=== PATIENT | female | born 1950 | race Caucasian/White ===

== ENCOUNTER 2020-06-19 11:12 | Outpatient (CLI) | payer MEDICARE, SELFPAY ==
--- NOTE | 2020-06-19 11:34 | XRR_ITS ---
PROCEDURE INFORMATION: Exam: XR Left Knee Exam date and time: 06/19/2020 11:35 AM Age: 70 years old Clinical indication: Pain; Knee; Left; Additional info: Left knee pain x 3 weeks/? Morales's cyst TECHNIQUE: Imaging protocol: XR Left knee. Views: 3 views. COMPARISON: No relevant prior studies available. FINDINGS: Bones/joints: Mild degenerative changes within the medial compartment reflected as mild joint space narrowing. Mild patellofemoral degenerative changes Soft tissues: Normal. XR/XR knee LT 3V* [id number] IMPRESSION: Mild degenerative changes most pronounced medially
== END 2020-06-19 11:13 | disposition home or self-care (01) ==
LOC: RAD 11:25
PROVIDERS: PCP Nurse Practitioner Family; Visit Provider Nurse Practitioner Family
DX: M25.562 Pain in left knee (principal)
CPT/HCPCS: 73562

== ENCOUNTER 2020-08-05 15:16 | Outpatient (RCR) | payer MEDICARE, SELFPAY | END 2020-08-19 23:59 | disposition home or self-care (01) | LOC: SPT 15:16 | PROVIDERS: PCP Nurse Practitioner Family; Referring Provider Nurse Practitioner Family; Visit Provider Nurse Practitioner Family | DX: M25.562 Pain in left knee (principal) | CPT/HCPCS: 97110; 97161 ==

== ENCOUNTER 2020-08-20 15:33 | Outpatient (CLI) | payer MEDICARE, SELFPAY ==
--- NOTE | 2020-08-20 15:58 | MR_ITS ---
WS: [id number] MRI LEFT KNEE NONCONTRAST TECHNIQUE: Axial PD, coronal PD fat sat, coronal PD, sagittal PD, and sagittal PD fat-sat images obta ined. CLINICAL INFORMATION: KNEE PAIN, LEFT COMPARISON: None. FINDINGS: Distal quadriceps and patella tendons are intact. Hypertrophic patella. Small suprapatellar effusion. Prepatellar soft tissue edema. Normal ACL. Normal PCL. Normal lateral meniscus. Complex tear involvi ng the posterior horn medial meniscus extending to the articular surface. This extends to the menisca l root with blunting of the posterior horn medial meniscus. Moderate joint space narrowing medial patricia nt compartment. Subchondral edema involving the medial tibial plateau. Fluid superficial and deep to the medial collateral ligament consistent with grade 1-2 injury. Fluid deep to the semimembranosus te ndon. Small osteochondral defects involving the medial tibial plateau. Moderate chondromalacia patella. No rmal medial and lateral patellar retinaculum. MR/MR knee LT wo con* [id number] IMPRESSION: 1. Moderate suprapatellar effusion. 2. Anterior and posterior cruciate ligaments are intact. 3. Complex tear involving the posterior horn medial meniscus extending to the articular surface. This extends to the meniscal root. Soft tissue edema involvi ng the medial joint line. 4. Fluid superficial and deep to the medial collateral ligament consistent wit h grade 1-2 injury which appears intact. 5. Moderate joint space narrowing medial joint compartment with subchondral ed kavon and small osteochondral defects involving the medial tibial plateau. No destiny ma in the medial femoral condyle. 6. Moderate chondromalacia patella.
== END 2020-08-20 15:34 | disposition home or self-care (01) ==
LOC: RADSHAW 15:36
PROVIDERS: PCP Nurse Practitioner Family; Visit Provider Nurse Practitioner Family
DX: M25.462 Effusion, left knee (principal); M22.42 Chondromalacia patellae, left knee; S83.242A Other tear of medial meniscus, current injury, left knee, initial encounter; X58.XXXA Exposure to other specified factors, initial encounter
CPT/HCPCS: 73721

== ENCOUNTER → 2020-08-28 13:18 | Outpatient (BNVA) | payer MEDICARE, SELFPAY | PROVIDERS: PCP Nurse Practitioner Family; Visit Provider Orthopaedic Surgery | DX: M25.562 Pain in left knee (principal) | CPT/HCPCS: 73560; 73565 ==

== ENCOUNTER 2021-04-24 09:21 | Outpatient (CLI) | payer MEDICARE, SELFPAY ==
--- NOTE | 2021-04-24 09:25 | MM_ITS ---
WS: [id number] BILATERAL DIGITAL SCREENING MAMMOGRAPHY WITH CAD CLINICAL INFORMATION: SCREENING HISTORY: Screening mammogram. No current complaints. COMPARISON: TECHNIQUE: Bilateral CC and MLO views. FINDINGS: Scattered fibroglandular densities bilaterally. Stable intramammary lymph nodes upper outer right daria ast. No suspicious focal mass, asymmetry, calcifications, or architectural distortion. No evidence of malignancy. MM/[place] [id number] IMPRESSION: BI-RADS: 2-Benign FOLLOW UP: 1 Year Follow-up Recommend return to annual screening mammography.
== END 2021-04-24 09:22 | disposition home or self-care (01) ==
LOC: RADSHAW 09:24
PROVIDERS: PCP Nurse Practitioner Family; Visit Provider Nurse Practitioner Family
DX: Z12.31 Encounter for screening mammogram for malignant neoplasm of breast (principal)
CPT/HCPCS: 77067

== ENCOUNTER 2021-12-17 10:02 | Emergency (ER) | payer MEDICARE, SELFPAY ==
[2021-12-17 10:06] VITALS: BP 179/78; PULSE 95; RESP 18; TEMP 36.9; O2SAT 99; BMI 33.2
--- NOTE | 2021-12-17 10:16 | XR_ITS ---
WS: [id number] PORTABLE CHEST HISTORY: Chest pain. COMPARISON: None available. Lungs are clear and well expanded. No pleural effusion or pneumothorax. Cardiac size: Normal. Mediastinum/Aorta: Normal mediastinum. No osseous abnormality seen. XR/XR chest 1V portable [id number] IMPRESSION: Unremarkable portable chest.
--- NOTE | 2021-12-17 10:16 | ECG_ITS ---
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 Measurements Intervals [place] Rate: 85 P: 63 NE: 156 QRS: 11 QRSD: 86 T: 49 QT: 370 QTc: 441 Interpretive Statements SINUS RHYTHM LOW QRS VOLTAGE IN PRECORDIAL LEADS [QRS DEFLECTION < 1.0 mV IN CHEST LEADS] No previous ECG available for comparison Electronically Signed On 12-17-2021 17:06:05 CDT by Daniel Cabrera M.D. [email or web address] - [id number]
[2021-12-17 10:21] VITALS: BP 177/80; PULSE 79; RESP 16; TEMP 36.9; O2SAT 96
--- NOTE | 2021-12-17 10:31 | ED_ITS ---
Documented by User: ANNIE Chaudhary 12/18/21 12:19 HPI - Chest Pain General: Chief Complaint: Chest Pain Stated Complaint: Chest Pain History of Present Illness: Patient is a 71-year-old female comes to the ED with chest pain. Patient says it started 3 days ago while she was at rest. Pain started in the left lower side of chest and over the past 3 days it has progressed and become a burning pain that is moved up into the center of her chest. She also endorses having some left arm soreness as well. She states she is never had chest pain like this before. Pain does not worsen after she eats or if she is laying flat. Pain worsens if she takes a deep breath. She currently rates the pain a 3 out of 10. Patient did say that she ate some spicy cinnamon homemade apple butter right before the symptoms started. She says she does not usually eat things are that spicy. patient also states that she lost her brother a week ago. Associated symptoms: Deny abdominal pain, dyspnea, fever(s), nausea, palpitations or vomiting Review of Systems Const: Denies: fever(s), chills or fatigue Eyes: Denies: change in vision or eye discomfort ENMT: Denies: throat pain, odynophagia, nasal discharge or nasal congestion Card: Reports: chest pain; Denies: palpitations, edema, swelling of feet/ankles, dyspnea on exertion or orthopnea Resp: Denies: dyspnea, productive cough or non-productive cough GI: Denies: abdominal pain, nausea, vomiting, diarrhea, constipation or hematochezia : Denies: flank pain, dysuria or hematuria Musc: Denies: neck pain, back pain or extremity swelling Skin/Breast: Denies: rash or new lesions Neuro: Denies: headache(s), numbness in extremities or weakness in extremities PFS ED PFSH: Medical History (Updated 12/18/21 @ 12:14 by ANNIE Chaudhary) No pertinent family history No pertinent past medical history Physical Exam Const: COMMON NORMALS: no acute distress, patient oriented x3, healthy appearing and alert GENERAL APPEARANCE: cooperative and comfortable HENMT: COMMON NORMALS: normocephalic HEAD & SCALP: normocephalic MOUTH: Normal oral and palatal mucosa present THROAT: posterior oropharynx normal and uvula midline Neck/C-Spine: COMMON NORMALS: supple GENERAL: Yes normal visual inspection Resp: COMMON NORMALS: normal respiratory effort, No retractions, No use of accessory muscles and clear to auscultation bilaterally AUSCULTATION: clear to auscultation bilaterally Cardio: COMMON NORMALS: regular rate, regular rhythm, S1 normal heart sound present, S2 normal heart sound present, No gallops present (Cardio), No clicks present (Cardio), No murmurs present (Cardio) and Peripheral pulses 2+ throughout RATE: regular rate RHYTHM: regular rhythm HEART SOUNDS: S1 normal heart sound present and S2 normal heart sound present PERIPHERAL PULSES: Peripheral pulses 2+ throughout GI: COMMON NORMALS: Normal to inspection, nondistended, normoactive bowel sounds present, Soft to palpation, non-tender and no masses PALPATION: Yes Soft to palpation : COMMON NORMALS: Yes no CVA tenderness BLADDER/KIDNEY EXAM: Yes no CVA tenderness Back/Pelvis: COMMON NORMALS: no CVA tenderness Extremity: COMMON NORMALS: normal to inspection and no pedal edema Neuro: COMMON NORMALS: patient oriented x3 and moves all extremities SENSORIUM/ORIENTATION: Yes alert Skin: GENERAL SKIN EXAM: dry skin Course Vital Signs: Vital signs: Vital Signs Temperature 98.5 F 12/17/21 10:21 Pulse Rate 76 12/17/21 12:42 Respiratory Rate 16 12/17/21 12:42 Blood Pressure 121/58 12/17/21 12:42 Pulse Oximetry 95 12/17/21 12:42 MDM - Chest Pain Medical Decision Making Patient is a 71-year-old female who comes to the ED with chest pain. Symptoms started 3 days ago. Patient says she is having a burning pain that goes in the middle of her chest. She endorses eating some spicy cinnamon apple butter that she may need and symptoms started after she started eating. Vitals are stable. Patient appears in no acute distress or pain. Rest of exam is benign. CBC and CMP were unremarkable. Baseline troponin negative. D-dimer negative. Chest x- ray showed no acute findings. baseline and 2-hour EKG showed normal sinus rhythm with some occasional supraventricular premature complexes but no ST segment elevation or depression seen. Patient diagnosed with noncardiac chest pain and was discharged home. She was told to follow-up with her PCP in the next 5 to 7 days reevaluation. Return to ED precautions given. Patient understood and agreed with plan. Lab Data I reviewed the patient's lab results. : 12/17/21 10:45 12/17/21 10:45 Radiology Impressions Chest X-Ray 12/17/21 10:16 IMPRESSION: Unremarkable portable chest. Laboratory Results WBC 9.2 10^3/uL (4.0-10.0) 12/17/21 10:45 RBC 4.98 10^6/uL (4.1-5.3) 12/17/21 10:45 Hgb 14.5 g/dL (11.5-15.3) 12/17/21 10:45 Hct 44.2 % (37.0-47.0) 12/17/21 10:45 MCV 88.8 fl (81-99) 12/17/21 10:45 MCH 29.1 pg (28.0-34.0) 12/17/21 10:45 MCHC 32.8 g/dL (30.0-36.0) 12/17/21 10:45 RDW 12.9 % (12.1-15.1) 12/17/21 10:45 Plt Count 327 10^3/cmm (130-400) 12/17/21 10:45 MPV 9.7 fL (7.4-10.4) 12/17/21 10:45 Neut % (Auto) 48.1 % 12/17/21 10:45 Lymph % (Auto) 32.7 % 12/17/21 10:45 Perkins % (Auto) 7.9 % 12/17/21 10:45 Eos % (Auto) 10.1 % 12/17/21 10:45 Baso % (Auto) 0.8 % 12/17/21 10:45 Neut # (Auto) 4.41 10^3/uL (1.8-7.7) 12/17/21 10:45 Lymph # (Auto) 3.0 10^3/uL (0.8-4.8) 12/17/21 10:45 Perkins # (Auto) 0.7 10^3/uL (0.2-0.9) 12/17/21 10:45 Eos # (Auto) 0.9 10^3/uL (0.0-0.8) H 12/17/21 10:45 Baso # (Auto) 0.1 10^3/uL (0.0-0.1) 12/17/21 10:45 Nucleated RBC % (auto) 0 % 12/17/21 10:45 Nucleated RBCs # 0.0 /100WBC 12/17/21 10:45 D-Dimer <= 0.27 ug/mIFEU (0-0.59) 12/17/21 10:45 Sodium 136 mmol/L (136-145) 12/17/21 10:45 Potassium 4.5 mmol/L (3.5-5.1) 12/17/21 10:45 Chloride 103 mmol/L (98-107) 12/17/21 10:45 Carbon Dioxide 23 mmol/L (22-29) 12/17/21 10:45 Anion Gap 14.5 (5-19) 12/17/21 10:45 BUN 14 mg/dL (8-23) 12/17/21 10:45 Creatinine 0.8 mg/dL (0.5-0.9) 12/17/21 10:45 GFR Calculation 71.1 mL/min (90-130) L 12/17/21 10:45 Glucose 97 mg/dL (65-115) 12/17/21 10:45 Calculated Osmolality 282 mOsm/kg (285-295) L 12/17/21 10:45 Calcium 9.4 mg/dL (8.5-10.5) 12/17/21 10:45 Total Bilirubin 0.2 mg/dL (0.15-1.2) 12/17/21 10:45 AST 16 U/L (0-32) 12/17/21 10:45 ALT 15 U/L (0-33) 12/17/21 10:45 Alkaline Phosphatase 90 IU/L (35-105) 12/17/21 10:45 Troponin T Baseline 9 ng/L (0-10) 12/17/21 10:45 NT-Pro-B Natriuret Pep 103 pg/mL (0-125) 12/17/21 10:45 Total Protein 6.8 g/dL (6.6-8.7) 12/17/21 10:45 Albumin 4.1 g/dL (3.5-5.2) 12/17/21 10:45 Globulin 2.7 g/dL (1.3-4.6) 12/17/21 10:45 Discharge Plan Discharge Patient Disposition: Home Clinical Impression: Chest pain, non-cardiac Condition: Stable Prescriptions: No Action levothyroxine 50 mcg tablet 50 mcg PO DAILY 0RF Discharge Orders: Discharge ED (Routine); Ordered 12/17/21 Ordered By: Andrew Marks Referrals: Keshia Leung LOOM INSPECTOR [Primary Care Provider] - Discharge Diet: Regular Discharge Activity: Increase activity as tolerated Patient Instructions: Noncardiac Chest Pain (ED) Activity Restrictions/Additional Instructions: Follow-up with medical provider as directed in the next 5 to 7 days reevaluation. Continue taking all home medications as previously prescribed. If you have any reoccurring instances of acid reflux she can take [id number] Pepto-Bismol or Mylanta to see if it helps with her symptoms. If you continue getting reoccurring acid reflux type symptoms after you eat talk with your primary care doctor about other medication options. Return to the ER or your medical provider if condition worsens. Please read and understand discharge instructions. Thank you for choosing [facility] for your healthcare needs today. Please realize this is an emergency room and that we are providing you with a medical screening exam and this may not be complete and all inclusive of all the testing and or work up that you may need to determine your ailment or severity of your illness. It is very important that you follow up as instructed or that you return to the Emergency Department should you have concerns or if your condition changes or worsens in any way. Coding Level of Care Code ED Sterile Supply Technician for g Fwd Exam Comprehensive Documented by User: Jese Ann DO 12/18/21 14:22 HPI - Chest Pain General: Chief Complaint: Chest Pain Stated Complaint: Chest Pain [facility] ED PFSH: Medical History (Updated 12/18/21 @ 12:14 by ANNIE Chaudhary) No pertinent family history No pertinent past medical history Course Vital Signs: Vital signs: Vital Signs Temperature 98.5 F 12/17/21 10:21 Pulse Rate 76 12/17/21 12:42 Respiratory Rate 16 12/17/21 12:42 Blood Pressure 121/58 12/17/21 12:42 Pulse Oximetry 95 12/17/21 12:42 MDM - Chest Pain Medical Decision Making Patient is a 71-year-old female who comes to the ED with chest pain. Symptoms started 3 days ago. Patient says she is having a burning pain that goes in the middle of her chest. She endorses eating some spicy cinnamon apple butter that she may need and symptoms started after she started eating. Vitals are stable. Patient appears in no acute distress or pain. Rest of exam is benign. CBC and CMP were unremarkable. Baseline troponin negative. D-dimer negative. Chest x- ray showed no acute findings. baseline and 2-hour EKG showed normal sinus rhythm with some occasional supraventricular premature complexes but no ST segment elevation or depression seen. Patient diagnosed with noncardiac chest pain and was discharged home. She was told to follow-up with her PCP in the ne xt 5 to 7 days reevaluation. Return to ED precautions given. Patient understood and agreed with plan. Chart reviewed and patient discussed with midlevel. Agree with assessment and plan. Lab Data : 12/17/21 10:45 12/17/21 10:45 Radiology Impressions Chest X-Ray 12/17/21 10:16 IMPRESSION: Unremarkable portable chest. Laboratory Results WBC 9.2 10^3/uL (4.0-10.0) 12/17/21 10:45 RBC 4.98 10^6/uL (4.1-5.3) 12/17/21 10:45 Hgb 14.5 g/dL (11.5-15.3) 12/17/21 10:45 Hct 44.2 % (37.0-47.0) 12/17/21 10:45 MCV 88.8 fl (81-99) 12/17/21 10:45 MCH 29.1 pg (28.0-34.0) 12/17/21 10:45 MCHC 32.8 g/dL (30.0-36.0) 12/17/21 10:45 RDW 12.9 % (12.1-15.1) 12/17/21 10:45 Plt Count 327 10^3/cmm (130-400) 12/17/21 10:45 MPV 9.7 fL (7.4-10.4) 12/17/21 10:45 Neut % (Auto) 48.1 % 12/17/21 10:45 Lymph % (Auto) 32.7 % 12/17/21 10:45 Perkins % (Auto) 7.9 % 12/17/21 10:45 Eos % (Auto) 10.1 % 12/17/21 10:45 Baso % (Auto) 0.8 % 12/17/21 10:45 Neut # (Auto) 4.41 10^3/uL (1.8-7.7) 12/17/21 10:45 Lymph # (Auto) 3.0 10^3/uL (0.8-4.8) 12/17/21 10:45 Perkins # (Auto) 0.7 10^3/uL (0.2-0.9) 12/17/21 10:45 Eos # (Auto) 0.9 10^3/uL (0.0-0.8) H 12/17/21 10:45 Baso # (Auto) 0.1 10^3/uL (0.0-0.1) 12/17/21 10:45 Nucleated RBC % (auto) 0 % 12/17/21 10:45 Nucleated RBCs # 0.0 /100WBC 12/17/21 10:45 D-Dimer <= 0.27 ug/mIFEU (0-0.59) 12/17/21 10:45 Sodium 136 mmol/L (136-145) 12/17/21 10:45 Potassium 4.5 mmol/L (3.5-5.1) 12/17/21 10:45 Chloride 103 mmol/L (98-107) 12/17/21 10:45 Carbon Dioxide 23 mmol/L (22-29) 12/17/21 10:45 Anion Gap 14.5 (5-19) 12/17/21 10:45 BUN 14 mg/dL (8-23) 12/17/21 10:45 Creatinine 0.8 mg/dL (0.5-0.9) 12/17/21 10:45 GFR Calculation 71.1 mL/min (90-130) L 12/17/21 10:45 Glucose 97 mg/dL (65-115) 12/17/21 10:45 Calculated Osmolality 282 mOsm/kg (285-295) L 12/17/21 10:45 Calcium 9.4 mg/dL (8.5-10.5) 12/17/21 10:45 Total Bilirubin 0.2 mg/dL (0.15-1.2) 12/17/21 10:45 AST 16 U/L (0-32) 12/17/21 10:45 ALT 15 U/L (0-33) 12/17/21 10:45 Alkaline Phosphatase 90 IU/L (35-105) 12/17/21 10:45 Troponin T Baseline 9 ng/L (0-10) 12/17/21 10:45 NT-Pro-B Natriuret Pep 103 pg/mL (0-125) 12/17/21 10:45 Total Protein 6.8 g/dL (6.6-8.7) 12/17/21 10:45 Albumin 4.1 g/dL (3.5-5.2) 12/17/21 10:45 Globulin 2.7 g/dL (1.3-4.6) 12/17/21 10:45 Discharge Plan Discharge Patient Disposition: Home Clinical Impression: Chest pain, non-cardiac Condition: Stable Prescriptions: No Action levothyroxine 50 mcg tablet 50 mcg PO DAILY 0RF Discharge Orders: Discharge ED (Routine); Ordered 12/17/21 Ordered By: Andrew Marks Referrals: Keshia Leung LOOM INSPECTOR [Primary Care Provider] - Discharge Diet: Regular Discharge Activity: Increase activity as tolerated Patient Instructions: Noncardiac Chest Pain (ED) Activity Restrictions/Additional Instructions: Follow-up with medical provider as directed in the next 5 to 7 days reevaluation. Continue taking all home medications as previously prescribed. If you have any reoccurring instances of acid reflux she can take over-the- counter Pepto-Bismol or Mylanta to see if it helps with her symptoms. If you continue getting reoccurring acid reflux type symptoms after you eat talk with your primary care doctor about other medication options. Return to the ER or your medical provider if condition worsens. Please read and understand discharge instructions. Thank you for choosing [facility] for your healthcare needs today. Please realize this is an emergency room and that we are providing you with a medical screening exam and this may not be complete and all inclusive of all the testing and or work up that you may need to determine your ailment or severity of your illness. It is very important that you follow up as instructed or that you return to the Emergency Department should you have concerns or if your condition changes or worsens in any way. Coding Level of Care Code ED Sterile Supply Technician for Shayy Fwjuan francisco Exam Comprehensive
[2021-12-17 10:44] VITALS: BP 160/66; PULSE 79; RESP 16; O2SAT 95
[2021-12-17 10:53] LABS: Basophils # 0.1 10^3/uL (0.0-0.1); Basophils % 0.8 %; Eosinophils # 0.9 10^3/uL (0.0-0.8); Eosinophils % 10.1 %; Hematocrit 44.2 % (37.0-47.0); Hemoglobin 14.5 g/dL (11.5-15.3); Lymphocytes % 32.7 %; Mean Corpuscular HGB Conc 32.8 g/dL (30.0-36.0); Mean Corpuscular Hemoglobin 29.1 pg (28.0-34.0); Mean Corpuscular Volume 88.8 fl (81-99); Mean Platelet Volume 9.7 fL (7.4-10.4); Monocytes # 0.7 10^3/uL (0.2-0.9); Monocytes % 7.9 %; Neutrophils # 4.41 10^3/uL (1.8-7.7); Neutrophils % 48.1 %; Nucleated Red Blood Cells % 0 %; Platelet Count 327 10^3/cmm (130-400); Red Blood Count 4.98 10^6/uL (4.1-5.3); Red Cell Distribution Width 12.9 % (12.1-15.1); White Blood Count 9.2 10^3/uL (4.0-10.0)
[2021-12-17 11:09] LABS: D Dimer <= 0.27 ug/mIFEU (0-0.59)
[2021-12-17 11:12] VITALS: BP 92/78; PULSE 72; RESP 16; O2SAT 95
[2021-12-17 11:25] LABS: Alanine Aminotransferase 15 U/L (0-33); Albumin Level 4.1 g/dL (3.5-5.2); Alkaline Phosphatase 90 IU/L (35-105); Blood Urea Nitrogen 14 mg/dL (8-23); Calcium 9.4 mg/dL (8.5-10.5); Carbon Dioxide 23 mmol/L (22-29); Chloride 103 mmol/L (98-107); Globulin 2.7 g/dL (1.3-4.6); Glomerular Filtration Rate 71.1 mL/min (90-130); Glucose 97 mg/dL (65-115); NT Pro B Type Natriuretic Pept 103 pg/mL (0-125); Osmolality Calculated 282 mOsm/kg (285-295); Sodium 136 mmol/L (136-145); Total Bilirubin 0.2 mg/dL (0.15-1.2); Total Protein 6.8 g/dL (6.6-8.7)
[2021-12-17 11:28] LABS: Anion Gap 14.5 (5-19); Aspartate Amino Transferase 16 U/L (0-32); Potassium 4.5 mmol/L (3.5-5.1)
[2021-12-17 11:32] LABS: Troponin(5th) Baseline 9 ng/L (0-10)
--- NOTE | 2021-12-17 12:16 | ECG_ITS ---
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 Measurements Intervals [place] Rate: 70 P: 51 OK: 172 QRS: 38 QRSD: 86 T: 46 QT: 405 QTc: 439 Interpretive Statements SINUS RHYTHM WITH OCCASIONAL SUPRAVENTRICULAR PREMATURE COMPLEXES Compared to ECG 12/17/2021 10:13:26 No significant changes Electronically Signed On 12-17-2021 17:17:28 CDT by Daniel Cabrera M.D. [id number]
[2021-12-17 12:42] VITALS: BP 121/58; PULSE 76; RESP 16; O2SAT 95
== END 2021-12-17 12:46 | disposition home or self-care (01) ==
PROVIDERS: Emergency Provider Physician Assistant; PCP Nurse Practitioner Family
DX: R07.89 Other chest pain (principal)
CPT/HCPCS: 71045; 80053; 83880; 84484; 85025; 85378; 93005; 99283

== ENCOUNTER 2022-06-25 10:21 | Outpatient (CLI) | payer MEDICARE, SELFPAY ==
--- NOTE | 2022-06-25 10:31 | MM_ITS ---
WS: [id number] SCREENING DIGITAL BREAST TOMOSYNTHESIS MAMMOGRAM WITH CAD HISTORY: SCREENING COMPARISON: 04/24/2021, 07/03/2019 and 10/12/2017 Bilateral CC and MLO with tomosynthesis and synthetic mammography submitted. Computer aided detection analyzed. Breast composition: There are scattered areas of fibroglandular density. Nodular asymmetry in the upp er outer quadrant of the RIGHT breast at a middle depth. Slightly more prominent than on prior studie s. Additional imaging is recommended to exclude underlying mass. The LEFT breast is negative. MM/[place] [id number] IMPRESSION: BI-RADS: 0-Incomplete: Need additional imaging evaluation FOLLOW UP: Need Additional Imaging RIGHT breast: Spot compression views (CC and MLO). True ML. Ultrasound to follo w if abnormality persists.
== END 2022-06-25 10:22 | disposition home or self-care (01) ==
LOC: RAD 10:22
PROVIDERS: PCP Nurse Practitioner Family; Visit Provider Nurse Practitioner Family
DX: Z12.31 Encounter for screening mammogram for malignant neoplasm of breast (principal)
CPT/HCPCS: 77063; 77067

== ENCOUNTER 2022-07-21 08:18 | Outpatient (CLI) | payer MEDICARE, SELFPAY ==
--- NOTE | 2022-07-21 08:37 | MM_ITS ---
WS: [id number] ADDITIONAL VIEWS RIGHT MAMMOGRAM WITH DIGITAL BREAST TOMOSYNTHESIS. RIGHT BREAST ULTRASOUND HISTORY: ABNORMAL MAMMO COMPARISON: 06/25/2022, 04/24/2021 RIGHT MAMMOGRAM: Spot compression views and true ML with digital breast tomosynthesis and SM. Asymmetry is probably completely resolved. There is still increased density as compared to the prior study in the upper-outer quadrant near 11:00. RIGHT BREAST ULTRASOUND 2-D and color Doppler imaging submitted. Ultrasound is directed to the upper outer quadrant of the RIGHT breast. No mass or distortion identif ied. Normal appearance of the soft tissues. MM/[place] [id number] IMPRESSION: BI-RADS: 2-Benign FOLLOW UP: 1 Year Follow-up
== END 2022-07-21 08:19 | disposition home or self-care (01) ==
LOC: RAD 08:21
PROVIDERS: PCP Nurse Practitioner Family; Visit Provider Nurse Practitioner Family
DX: R92.8 Other abnormal and inconclusive findings on diagnostic imaging of breast (principal)
CPT/HCPCS: 76642; 77061

== ENCOUNTER 2023-08-02 11:12 | Outpatient (CLI) | payer MEDICARE, SELFPAY ==
--- NOTE | 2023-08-02 11:16 | MM_ITS ---
WS: [id number] VIEWS: MLO and CC views both breasts. 3D digital tomosynthesis is also included in this exam. Comparison made with prior exam of 02/09/2011, 10/12/2017, 07/03/2019, 04/24/2021, 06/25/2022.. Findings: There was no sign of mass, architectural distortion or suspicious calcification in either breast. Sta ble appearing nodules in the RIGHT breast. There are scattered areas of fibroglandular density Impression: MM/[place] [id number] BI-RADS: 2-Benign finding. FOLLOW-UP: 1 Year Follow-up This mammogram was also analyzed by the Computer Aided Detection System R2 Imag e Psychologist Social.
== END 2023-08-02 11:13 | disposition home or self-care (01) ==
PROVIDERS: PCP Nurse Practitioner Family; Visit Provider Nurse Practitioner Family
DX: Z12.31 Encounter for screening mammogram for malignant neoplasm of breast (principal)
CPT/HCPCS: 77063; 77067

== ENCOUNTER 2023-09-27 19:09 | Emergency (ER) | payer MEDICARE, SELFPAY ==
--- NOTE | 2023-09-27 19:11 | ECG_ITS ---
[facility] Test Date: 2023-09-27 Pat Name: Concha Cox Department: Room: Gender: Female Regulatory Affairs Analyst: : 1950 Requested By: Ashanti Kc Order Number: [id number] Elver MD: Edison Pérez M.D. Measurements Intervals [place] Rate: 84 P: 38 WV: 144 QRS: 8 QRSD: 74 T: 34 QT: 356 QTc: 422 Interpretive Statements SINUS RHYTHM MINIMAL ST DEPRESSION [0.025+ mV ST DEPRESSION] Compared to ECG 12/17/2021 12:17:09 ST (T wave) deviation now present Electronically Signed On 09-28-2023 4:23:52 LINING INSERTER by Edison Pérez M.D. [id number]
--- NOTE | 2023-09-27 19:11 | XRR_ITS ---
PROCEDURE INFORMATION: Exam: XR Chest Exam date and time: 09/27/2023 8:09 PM Age: 73 years old Clinical indication: Pain; Chest pressure; Additional info: Cp TECHNIQUE: Imaging protocol: Radiologic exam of the chest. Views: 1 view. COMPARISON: CR XR chest 1V portable [id number] 12/17/2021 10:59 AM FINDINGS: Lungs: Lungs are clear bilaterally. Pleural spaces: No pleural effusion. No pneumothorax. Heart/Mediastinum: The cardiac silhouette and mediastinal contours are unremarkable. Bones/joints: Unremarkable for age. XR/XR chest 1V portable [id number] IMPRESSION: No acute cardiopulmonary process.
[2023-09-27 19:19] VITALS: BP 158/65; PULSE 88; RESP 14; TEMP 36.8; O2SAT 99; BMI 35.5
[2023-09-27] MEDS: aspirin 81 mg Chew Tablet 324 MG PO (20:18)
[2023-09-27 20:53] VITALS: BP 134/71; PULSE 73; RESP 16; O2SAT 96
[2023-09-27 21:28] LABS: Basophils # 0.1 10^3/uL (0.0-0.1); Basophils % 0.5 %; Eosinophils # 1.1 10^3/uL (0.0-0.8); Eosinophils % 10.3 %; Hematocrit 42.1 % (36-47); Lymphocytes # 3.7 10^3/uL (0.8-4.8); Lymphocytes % 33.8 %; Mean Corpuscular Volume 87.7 fl (85-98); Mean Platelet Volume 9.7 fL (7.4-10.4); Monocytes # 0.9 10^3/uL (0.2-0.9); Monocytes % 7.9 %; Neutrophils # 5.16 10^3/uL (1.8-7.7); Neutrophils % 47.1 %; Nucleated Red Blood Cells % 0 %; Platelet Count 314 10^3/cmm (157-399); Red Cell Distribution Width 12.5 % (12.1-15.1); White Blood Count 10.95 10^3/uL (3.29-11.43)
--- NOTE | 2023-09-27 21:37 | W.ED.CHESTPA ---
HPI - Chest Pain General: Chief Complaint: Chest Pain Stated Complaint: cp Time Seen by Provider: 09/27/23 19:11 History of Present Illness: 73-year-old female presents emergency department with complaints of left-sided chest wall pain. She states the pain is under her breast and has been there for the previous 2 weeks. She states the pain is a vague intermittent dull aching/pressure type pain. She states that touching it and pushing on it seems to make it slightly worse and if she takes a deep breath and it is slightly worse. She states exertion or resting does not make it any better. Or worse. Review of Systems General: Reports: 10 or more systems reviewed and unremarkable except in HPI and below Card: Reports: chest pain [facility] ED [facility]: Medical History (Updated 09/27/23 @ 23:34 by Augustine Rinaldi MD) No pertinent past medical history No pertinent family history Physical Exam Narrative: EXAM NARRATIVE: Constitutional: the patient appears well nourished and with normal development. Vital signs reviewed as documented. HENMT: Normocephalic, atraumatic. Extermal ears with normal appearance without drainage. Nose without drainage, normal appearance. Mucus membranes moist. Neck is supple, No jugular venous distension, trachea is midline, no appreciable carotid bruits. No lymphadenopathy. No meningeal signs. Flexion, extension and lateral rotation is without pain. Eyes: Pupils are equal, round, reactive to light and accommodation. No scleral icterus. Extra-ocular movement are intact. Thorax is symmetrical and with equal rise and fall with respirations. Resp: Lungs are clear to auscultation. No wheezes, rales, crackles or ronchi at present. Cardio: Regular rate and rhythm. Positive S1, S2. No appreciable murmurs, rubs or gallops. GI: Abdominal exam reveals normal bowel sounds to all quadrants. No organomegaly. No obvious palpable masses noted. No hepatomegally appreciated. Soft, nontender to palpation. Extremity: Extremities are non-edematous and both femoral and pedal pulses are 2+ and equal bilaterally. Moves all extremities well, sensation in all extremities. Neuro: Alert and oriented x4, person, place, time and situation. Cranial nerves II through XII are grossly intact, there is no focal neurological deficits that I can appreciate at present. Motor strength in the upper and lower extremities are equal and bilateral 5/5. Psych: Cooperative, calm, normal thought process, appropriate judgment. Skin: No lesions, rashes. No gross abnormalities noted. Back: Symmetrical, no obvious deformity, No CVA tenderness Course Vital Signs: Vital signs: Vital Signs Temperature 98.2 F 09/27/23 23:54 Pulse Rate 74 09/27/23 23:54 Respiratory Rate 16 09/27/23 23:54 Blood Pressure 140/80 09/27/23 23:54 Pulse Oximetry 95 09/27/23 23:54 Oxygen Delivery Me thod Room Air 09/27/23 19:19 MDM - Chest Pain Medical Decision Making Physical exam completed and documented, I will obtain serial cardiac enzymes, serial twelve-lead EKGs, chest x-ray, CBC, CMP, urinalysis, B-type natriuretic peptide, PT/PTT/INR, and a chest x-ray. I will review any pervious and pertinent medical records for assist in obtaining beneficial medical information to improved the care and treatment of the patient. Medical Records I reviewed the patient's medical records. Lab Data I reviewed the patient's lab results. 09/27/23 21:13 09/27/23 21:13 Radiology Impressions Chest X-Ray 09/27/23 19:11 IMPRESSION: No acute cardiopulmonary process. Laboratory Results WBC 10.95 10^3/uL (3.29-11.43) 09/27/23 21:13 RBC 4.80 10^6/uL (3.85-5.65) 09/27/23 21:13 Hgb 13.90 g/dL (11.27-16.99) 09/27/23 21:13 Hct 42.1 % (36-47) 09/27/23 21:13 MCV 87.7 fl (85-98) 09/27/23 21:13 MCH 29.0 pg (27-33) 09/27/23 21:13 MCHC 33.0 g/dL (30-55) 09/27/23 21:13 RDW 12.5 % (12.1-15.1) 09/27/23 21:13 Plt Count 314 10^3/cmm (157-399) 09/27/23 21:13 MPV 9.7 fL (7.4-10.4) 09/27/23 21:13 Neut % (Auto) 47.1 % 09/27/23 21:13 Lymph % (Auto) 33.8 % 09/27/23 21:13 [place] % (Auto) 7.9 % 09/27/23 21:13 Eos % (Auto) 10.3 % 09/27/23 21:13 Baso % (Auto) 0.5 % 09/27/23 21:13 Neut # (Auto) 5.16 10^3/uL (1.8-7.7) 09/27/23 21:13 Lymph # (Auto) 3.7 10^3/uL (0.8-4.8) 09/27/23 21:13 [place] # (Auto) 0.9 10^3/uL (0.2-0.9) 09/27/23 21:13 Eos # (Auto) 1.1 10^3/uL (0.0-0.8) H 09/27/23 21:13 Baso # (Auto) 0.1 10^3/uL (0.0-0.1) 09/27/23 21:13 Nucleated RBC % (auto) 0 % 09/27/23 21:13 Nucleated RBCs # 0.0 /100WBC 09/27/23 21:13 PT 13.50 SECONDS (12.1-14.9) 09/27/23 21:13 INR 1.00 (0.8-1.2) 09/27/23 21:13 APTT 41.8 SECONDS (23.9-36.7) H 09/27/23 21:13 Sodium 139 mmol/L (136-145) 09/27/23 21:13 Potassium 3.8 mmol/L (3.5-5.1) 09/27/23 21:13 Chloride 105 mmol/L (98-107) 09/27/23 21:13 Carbon Dioxide 25 mmol/L (22-29) 09/27/23 21:13 Anion Gap 12.8 (5-19) 09/27/23 21:13 BUN 15 mg/dL (8-23) 09/27/23 21:13 Creatinine 0.9 mg/dL (0.5-0.9) 09/27/23 21:13 GFR Calculation Not Reportable 09/27/23 21:13 Glucose 113 mg/dL (65-115) 01/08/24 21:13 Calculated Osmolality 290 mOsm/kg (285-295) 09/27/23 21:13 Calcium 9.0 mg/dL (8.5-10.5) 09/27/23 21:13 Total Bilirubin 0.2 mg/dL (0.15-1.2) 09/27/23 21:13 AST 11 U/L (0-32) 09/27/23 21:13 ALT 11 U/L (0-33) 09/27/23 21:13 Alkaline Phosphatase 89 U/L (35-105) 09/27/23 21:13 Troponin T Baseline 7 ng/L (0-10) 09/27/23 21:13 Troponin T 120 Minute 7.47 ng/L (0-10) 09/27/23 22:38 Delta Troponin T 0.47 ABS# (0-10) 09/27/23 22:38 NT-Pro-B Natriuret Pep 137 pg/mL (0-125) H 09/27/23 21:13 Total Protein 6.6 g/dL (6.6-8.7) 09/27/23 21:13 Albumin 3.6 g/dL (3.5-5.2) 09/27/23 21:13 Globulin 3.0 g/dL (1.3-4.6) 09/27/23 21:13 Lipase 31 U/L (13-60) 09/27/23 21:13 All radiology interpretation(s) finalized by discharge EKG Data EKG 1: Interpretation: EKG obtained at 2210 reviewed at 2210 demonstrates sinus rhythm with intermittent PACs there is no ST elevation or depression to demonstrate acute ischemia or infarction at present. Discharge Plan Discharge Patient Disposition: Home Clinical Impression: Atypical chest pain Condition: Stable Prescriptions: No Action levothyroxine 50 mcg tablet 50 mcg PO DAILY Discharge Orders: Discharge ED (Routine); Ordered 09/27/23 Ordered By: Augustine Rinaldi Referrals: Keshia Leung, [employer] [Primary Care Provider] - Discharge Diet: Advance as tolerated Discharge Activity: Resume usual activity Patient Instructions: Opioid Safety, Pain Management Activity Restrictions/Additional Instructions: Activity Restrictions/Additional Instructions: Thank you for choosing [facility] for your healthcare needs today. Please realize that you were seen in the Emergency Department and that we are providing you with an emergency medical screening exam and this may not be a complete and all inclusive of all the testing and or medical work-up that you may need to determine your ailment or severity of your illness. It is very important that you follow-up as instructed with your Primary care provider or Specialist for additional evaluation and to discuss your medical treatment plan. You may return to the Emergency Department should you have concerns or if your condition changes or worsens in any way. Coding Level of Care Code ED [employer]ar[employer] Boss for Shayy Purdy
[2023-09-27 21:42] LABS: Partial Thromboplastin Time 41.8 SECONDS (23.9-36.7)
[2023-09-27 21:53] LABS: Troponin(5th) Baseline 7 ng/L (0-10)
[2023-09-27 22:01] LABS: Alanine Aminotransferase 11 U/L (0-33); Albumin Level 3.6 g/dL (3.5-5.2); Alkaline Phosphatase 89 U/L (35-105); Anion Gap 12.8 (5-19); Aspartate Amino Transferase 11 U/L (0-32); Blood Urea Nitrogen 15 mg/dL (8-23); Carbon Dioxide 25 mmol/L (22-29); Chloride 105 mmol/L (98-107); Glucose 113 mg/dL (65-115); Lipase 31 U/L (13-60); NT Pro B Type Natriuretic Pept 137 pg/mL (0-125); Osmolality Calculated 290 mOsm/kg (285-295); Potassium 3.8 mmol/L (3.5-5.1); Sodium 139 mmol/L (136-145); Total Bilirubin 0.2 mg/dL (0.15-1.2); Total Protein 6.6 g/dL (6.6-8.7)
[2023-09-27 22:06] VITALS: BP 140/80; PULSE 74; RESP 16; O2SAT 95
--- NOTE | 2023-09-27 22:10 | ECG_ITS ---
[facility] Test Date: 2023-09-27 Pat Name: Concha Cox Department: Room: Gender: Female Jerker: : 1950 Requested By: Augustine Rinaldi Order Number: [id number] Elver MD: Edison Pérez M.D. Measurements Intervals [place] Rate: 71 P: 37 MA: 157 QRS: 27 QRSD: 79 T: 49 QT: 398 QTc: 435 Interpretive Statements SINUS RHYTHM WITH OCCASIONAL SUPRAVENTRICULAR PREMATURE COMPLEXES Compared to ECG 09/27/2023 19:17:38 ST (T wave) deviation no longer present Electronically Signed On 09-28-2023 4:24:45 NURSING STUDENT by Edison Pérez M.D. [id number]
[2023-09-27 23:05] LABS: Troponin 5 2HR 7.47 ng/L (0-10); Troponin 5 2HR Delta 0.47 ABS# (0-10)
[2023-09-27 23:54] VITALS: BP 140/80; PULSE 74; RESP 16; TEMP 36.8; O2SAT 95
== END 2023-09-27 23:54 | disposition home or self-care (01) ==
PROVIDERS: Emergency Medicine; Emergency Provider Internal Medicine; PCP Nurse Practitioner Family
DX: R07.89 Other chest pain (principal)
CPT/HCPCS: 36415; 71045; 80053; 83690; 83880; 84484; 85025; 85610; 85730; 93005; 99285

== ENCOUNTER 2023-11-01 13:38 | Outpatient (CLI) | payer MEDICARE, SELFPAY ==
--- NOTE | 2023-11-01 13:45 | XR_ITS ---
WS: [id number] DEXA (DUAL ENERGY X-RAY ABSORPTIOMETRY) Bone mineral density was performed using a Dine[employer] machine. HISTORY: OSTEOPOROSIS SCREENING COMPARISON: None available. Lumbar spine BMD (L1-L4): 1.019 g/cm2 T score: -1.3 Z score: -0.3 Total hip BMD: Left: 0.934 g/cm2. T score: -0.6 Z score: 0.5 Right: 0.948 g/cm2. T score: -0.5 Z score: 0.6 10 year probability of a major osteoporotic fracture is 15.5%. IMPRESSION: OSTEOPENIA based upon the WHO classification for females.
== END 2023-11-01 13:39 | disposition home or self-care (01) ==
LOC: RAD 13:39
PROVIDERS: PCP Nurse Practitioner Family; Visit Provider Family Medicine
DX: M81.0 Age-related osteoporosis without current pathological fracture (principal)
CPT/HCPCS: 77080

== ENCOUNTER 2024-12-01 07:56 | Outpatient (CLI) | payer MEDICARE, SELFPAY ==
--- NOTE | 2024-12-01 07:59 | MM_ITS ---
WS: [id number] BILATERAL SCREENING DIGITAL TOMOSYNTHESIS MAMMOGRAM WITH CAD HISTORY: SCREENING COMPARISON: 08/02/2023, 07/21/2022, 06/25/2022, 10/12/2017 Bilateral CC and MLO views with tomosynthesis and synthetic mammography submitted. Computer aided detection analyzed. Breast composition: There are scattered areas of fibroglandular density. No suspicious masses, microcalcifications or architectural distortion. Long-term stability asymmetry lateral RIGHT breast. Benign lymph nodes upper outer quadrant RIGHT breast. MM/MM scr BI tomosynthesis [id number] IMPRESSION: BI-RADS: 2 - Benign. FOLLOW UP: 1 Year Follow-up
== END 2024-12-01 07:57 | disposition home or self-care (01) ==
LOC: RAD 07:56
PROVIDERS: PCP Nurse Practitioner Family; Visit Provider Nurse Practitioner Family
DX: Z12.31 Encounter for screening mammogram for malignant neoplasm of breast (principal); R92.323 Mammographic fibroglandular density, bilateral breasts; N64.89 Other specified disorders of breast; R59.0 Localized enlarged lymph nodes
CPT/HCPCS: 77063; 77067